=== PATIENT | female | born 2000 | race Caucasian/White ===

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

== ENCOUNTER 2019-08-27 13:01 | Emergency (ER) | payer OTHER ==
[~2019-08-27] VITALS: Ht 165.1 cm; Wt 77.3 kg
[2019-08-27 13:20] VITALS: TEMP 98.2
[2019-08-27] MEDS ORDERED: PROZAC40 MG PO (13:28)
[2019-08-27 15:06] VITALS: BP 115/72; PULSE 74
== END 2019-08-27 15:03 | disposition home or self-care (01) ==
LOC: COL.ER 13:01
DX: S90.122A Contusion of left lesser toe(s) without damage to nail, initial encounter (principal); W22.8XXA Striking against or struck by other objects, initial encounter; Y92.009 Unspecified place in unspecified non-institutional (private) residence as the place of occurrence of the external cause

== ENCOUNTER 2019-09-03 22:53 | Emergency (ER) | payer OTHER ==
[~2019-09-03] VITALS: Ht 177.8 cm; Wt 80.9 kg
[~2019-09-03 22:53] MED LIST changes: +PROZAC40 MG PO
[2019-09-03 23:19] VITALS: BP 132/82; TEMP 98.3
[2019-09-03 23:55] LABS: COLLECTION METHOD CLEAN CATCH
[2019-09-04] LABS: PH 7 (5-8); SQUAMOUS EPITHELIAL 0-2 /hpf; URINE APPEARANCE Clear; URINE BACTERIA Rare /hpf; URINE BILIRUBIN Negative (NEGATIVE); URINE BLOOD Negative (NEGATIVE); URINE COLOR Straw; URINE GLUCOSE Negative (NEGATIVE); URINE KETONE Negative (NEGATIVE); URINE LEUKOCYTE ESTERASE Negative (NEGATIVE); URINE NITRATE Negative (NEGATIVE); URINE PROTEIN(semi-quant) Negative (NEGATIVE); URINE RBC 0-2 /hpf; URINE UROBILINOGEN Negative (NEGATIVE)
[2019-09-04 00:58] VITALS: PULSE 88
== END 2019-09-04 01:00 | disposition home or self-care (01) ==
LOC: COL.ER 22:53
PROVIDERS: Emergency Medicine
DX: Z11.3 Encounter for screening for infections with a predominantly sexual mode of transmission (principal); Z88.0 Allergy status to penicillin
CPT/HCPCS: J0696

== ENCOUNTER 2020-01-14 21:07 | Emergency (ER) | payer OTHER ==
[~2020-01-14] VITALS: Ht 177.8 cm; Wt 77.3 kg
[2020-01-14 21:10] VITALS: BP 126/80; TEMP 97.8
[2020-01-14] MEDS ORDERED: VISTARIL 2525 MG/CAP PO (21:25)
[2020-01-14] MEDS ORDERED: CELEBREX 200MG200 MG PO (21:26)
[2020-01-14 21:58] VITALS: PULSE 72
== END 2020-01-14 21:58 | disposition home or self-care (01) ==
LOC: COL.ER 21:07
PROVIDERS: Emergency Medicine
DX: Z32.02 Encounter for pregnancy test, result negative (principal); F32.9 Major depressive disorder, single episode, unspecified; Z88.0 Allergy status to penicillin; Z88.1 Allergy status to other antibiotic agents

== ENCOUNTER 2020-03-25 15:34 | Emergency (ER) | payer OTHER ==
[~2020-03-25] VITALS: Ht 177.8 cm; Wt 68.2 kg
[~2020-03-25 15:34] MED LIST changes: +CELEBREX 200MG200 MG PO; +VISTARIL 2525 MG/CAP PO
[2020-03-25 15:39] VITALS: TEMP 98.7
[2020-03-25] MEDS ORDERED: NEXPLANON68 MG ID (15:41)
[2020-03-25 17:06] LABS: COLLECTION METHOD CLEAN CATCH
[2020-03-25 17:16] LABS: PH 6 (5-8); URINE APPEARANCE Hazy; URINE BACTERIA Rare /hpf; URINE BILIRUBIN Negative (NEGATIVE); URINE BLOOD 3+ (NEGATIVE); URINE COLOR Yellow; URINE GLUCOSE Negative (NEGATIVE); URINE KETONE Negative (NEGATIVE); URINE LEUKOCYTE ESTERASE 3+ (NEGATIVE); URINE NITRATE Negative (NEGATIVE); URINE PROTEIN(semi-quant) 1+ (NEGATIVE); URINE UROBILINOGEN Negative (NEGATIVE)
[2020-03-25] MEDS ORDERED: MACROBID 1100 MG/CAP PO (17:41)
[2020-03-25 18:04] VITALS: BP 110/71; PULSE 86
== END 2020-03-25 18:04 | disposition home or self-care (01) ==
LOC: COL.ER 15:34
PROVIDERS: Physician Assistant
DX: N39.0 Urinary tract infection, site not specified (principal); Z88.0 Allergy status to penicillin; Z88.1 Allergy status to other antibiotic agents
CPT/HCPCS: J0696